=== PATIENT | male | born 1995 | race Caucasian/White ===

== ENCOUNTER 2018-03-12 20:32 | Emergency (ER) | payer SELFPAY ==
--- NOTE | 2018-03-12 20:35 | PDOC ---
Rapid Medical Evaluation Time Seen by Provider: 03/12/18 20:33 Medical Evaluation: 03/12/18 20:33 I have performed a brief in-person evaluation of this patient. The patient presents with a chief complaint of: sacral pain Pertinent physical exam findings: deferred I have ordered the following: Tnothing The patient will proceed to the ED for further evaluation. Discharge Disposition - Diagnosis Sacral pain - Referrals - Patient Instructions - Post Discharge Activity
[2018-03-12 20:40] VITALS: BP 132/62; PULSE 68; TEMP 98.3; BMI 23.8
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
--- NOTE | 2018-03-12 21:16 | PDOC ---
History of Present Illness - General History Source: Patient Exam Limitations: No Limitations - History of Present Illness Initial Comments: 03/12/18 21:00 This is a 22 YOM with 3-year history of intermittent gluteal cleft pain and drainage/bleeding ever since suffering a soft tissue injury to the area. He explains that the pain and drainage have increased in the past 3 weeks and recently this has been giving him difficulty walking and standing. He denies any fever, chills, nausea, vomiting, diarrhea, constipation, pain to the back/ neck, headache, chest pain, new SOB, numbness, tingling, focal weakness, or other symptoms. He was seen at Urgent Care earlier today and given an antibiotic Rx but cannot remember the name. He has not been treated with antibiotics for this in the past. <Kamila Tinajero - Last Filed: 03/13/18 00:14> <Vik Daily - Last Filed: 03/13/18 00:35> - General Chief Complaint: Wound Stated Complaint: PAIN Time Seen by Provider: 03/12/18 20:33 Past History - Past Medical History COPD: No - Suicide/Smoking/Psychosocial Hx Smoking History: Never smoked Have you smoked in the past 12 months: No Information on smoking cessation initiated: No Hx Alcohol Use: No Drug/Substance Use Hx: No Substance Use Type: None <Kamila Tinajero - Last Filed: 03/13/18 00:14> <Vik Daily - Last Filed: 03/13/18 00:35> - Past Medical History Allergies/Adverse Reactions: Allergies Allergy/AdvReac Type Severity Reaction Status Date / Time albuterol Allergy Verified 03/12/18 21:28 azithromycin [From Zithromax] Allergy Verified 03/12/18 21:28 Home Medications: Ambulatory Orders Sulfamethoxazole/Trimethoprim [Bactrim Ds -] 2 tab PO BID #30 tablet 03/13/18 Review of Systems - Review of Systems Able to Perform ROS?: Yes Constitutional: No: Chills, Fever, Unexplained wgt Loss HEENTM: No: Nose Congestion, Throat Pain Respiratory: No: Cough, Shortness of Breath Cardiac (ROS): No: Chest Pain, Palpitations ABD/GI: No: Constipated, Diarrhea, Nausea, Vomiting : No: Burning, Dysuria Musculoskeletal: No: Back Pain, Neck Pain Integumentary: Yes: Lesions (gluteal cleft). No: Bruising, Rash Neurological: No: Headache, Numbness, Tingling, Weakness, Dizziness Endocrine: No: Unexplained Weight Gain, Unexplained Weight Loss <Kamila Tinajero - Last Filed: 03/13/18 00:14> *Physical Exam - Vital Signs Last Vital Signs Temp Pulse Resp BP Pulse Ox 98.3 F 68 18 132/62 100 03/12/18 20:34 03/12/18 20:34 03/12/18 20:34 03/12/18 20:34 03/12/18 20:34 - Physical Exam General Appearance: Yes: Nourished, Appropriately Dressed, Other (nontoxic and well appearing young adult male in no distress at rest, answering questions appropriately, accompanied by sister). No: Apparent Distress HEENT: positive: EOMI, LOLA, Normal Voice, Hearing Grossly Normal. negative: Scleral Icterus (R), Scleral Icterus (L), Nasal Congestion Neck: positive: Trachea midline, Supple. negative: Tender, Rigid Respiratory/Chest: positive: Lungs Clear, Normal Breath Sounds. negative: Respiratory Distress, Crackles, Rhonchi, Stridor, Wheezing Cardiovascular: positive: Regular Rhythm, Regular Rate, S1, S2. negative: Edema , JVD, Murmur Gastrointestinal/Abdominal: positive: Normal Bowel Sounds, Soft. negative: Tender, Organomegaly, Pulsatile Mass, Guarding Rectal Exam: positive: other (superior gluteal cleft with one 4-cm midsagittal open fissure with mildly malodorous drainage, no anal involvement, very tender to manipulation of the wound, no surrounding erythema, induration, or fluctuance ) Musculoskeletal: positive: Normal Inspection. negative: Decreased Range of Motion, Vertebral Tenderness Extremity: positive: Normal Capillary Refill, Normal Inspection, Normal Range of Motion. negative: Tender, Cyanosis Integumentary: positive: Normal Color, Dry, Warm. 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 intact (grossly), Fully Oriented, Alert, Normal Mood/Affect, Normal Response, Motor Strength 5/5 <Kamila Tinajero - Last Filed: 03/13/18 00:14> - Vital Signs Last Vital Signs Temp Pulse Resp BP Pulse Ox 98.3 F 68 18 132/62 100 03/12/18 20:34 03/12/18 20:34 03/12/18 20:34 03/12/18 20:34 03/12/18 20:34 <Vik Daily - Last Filed: 03/13/18 00:35> ED Treatment Course - LABORATORY CBC & Chemistry Diagram: 03/12/18 21:52 03/12/18 21:52 - RADIOLOGY Radiology Studies Ordered: Category Date Time Status PELVIS CT WITH CONTRAST [CT] Stat CT Scan 03/12/18 20:58 Ordered <TinajeroKamila - Last Filed: 03/13/18 00:14> - LABORATORY CBC & Chemistry Diagram: 03/12/18 21:52 03/12/18 21:52 - ADDITIONAL ORDERS Additional order review: Laboratory Results 03/12/18 21:52 Sodium 141 Potassium 4.3 Chloride 105 Carbon Dioxide 29 Anion Gap 7 L BUN 18 Creatinine 1.2 Creat Clearance w eGFR > 60 Random Glucose 93 Calcium 9.0 Total Bilirubin 0.4 AST 13 L ALT 21 Alkaline Phosphatase 117 C-Reactive Protein 3.6 H Total Protein 7.8 Albumin 4.0 03/12/18 21:52 RBC 5.07 MCV 82.4 MCHC 32.9 RDW 13.5 MPV 8.9 Neutrophils % 69.6 Lymphocytes % 19.2 Monocytes % 10.5 H Eosinophils % 0.2 Basophils % 0.5 - Medications Given in the ED: ED Medications Discontinued Medications Generic Name Dose Route Start Last Admin Trade Name Freq PRN Reason Stop Dose Admin Diphtheria/Tetanus/Acell Pertussis 0.5 ml 03/12/18 21:45 03/12/18 21:37 Boostrix - IM 03/12/18 21:46 0.5 ml .ONCE ONE Administration Oxycodone/Acetaminophen 1 combo 03/12/18 21:24 03/12/18 21:38 Percocet 5/325 - PO 03/12/18 21:25 1 combo ONCE ONE Administration Trimethoprim/Sulfamethoxazole 1 each 03/13/18 00:14 03/13/18 00:21 Bactrim Ds - PO 03/13/18 00:15 1 each ONCE ONE Administration <Vik Daily - Last Filed: 03/13/18 00:35> Medical Decision Making - Medical Decision Making Pt p/w chronic non-healing wound to the gluteal cleft with acute worsening of pain and drainage x3 weeks. No known h/o MRSA, no known immune compromise. Last tDaP was unknown. Initial Vital Signs Temp Pulse Resp BP Pulse Ox 98.3 F 68 18 132/62 100 03/12/18 20:34 03/12/18 20:34 03/12/18 20:34 03/12/18 20:34 03/12/18 20:34 Exam: Results as noted in Physical Exam section. DDX IBNLT: gluteal cleft chronic wound (infected vs. non-infected), pilonidal cyst, abscess, cellulitis without abscess, MRSA infection, etc. W/U ordered: Wound culture, CBCD CMP ESR CRP CT pelvis with IV contrast TX ordered: tDaP, percocet, Bactrim Laboratory Tests 03/12/18 03/12/18 21:52 21:52 WBC 9.3 RBC 5.07 Hgb 13.7 Hct 41.8 MCV 82.4 MCH 27.1 MCHC 32.9 RDW 13.5 Plt Count 241 MPV 8.9 Absolute Neuts (auto) 6.5 Neutrophils % 69.6 Lymphocytes % 19.2 Monocytes % 10.5 H Eosinophils % 0.2 Basophils % 0.5 Nucleated RBC % 0 Sodium 141 Potassium 4.3 Chloride 105 Carbon Dioxide 29 Anion Gap 7 L BUN 18 Creatinine 1.2 Creat Clearance w eGFR > 60 Random Glucose 93 Calcium 9.0 Total Bilirubin 0.4 AST 13 L ALT 21 Alkaline Phosphatase 117 C-Reactive Protein 3.6 H Total Protein 7.[address] Pelvis w/ IV contrast: right buttock with increased vascular flow; inflammation vs. infection. No abscess. Reassessment: Patient feels better, wants to go home, repeat exam benign. Repeat VS: DISCHARGE The Pts abscess has been incised and drained without issue. They do not require abx for this laceration. E-Rx is sent to their pharmacy for abx and they will take the whole course as Rx. Workup is not concerning for emergency-level pathology at this time. The Pt is appropriate for discharge with close outpatient follow up. They are comfortable with this plan and will follow up with their PCP in 1-3 days. Specific return precautions are discussed and they will come back to the ER if necessary. <Kamila Tinajero - Last Filed: 03/13/18 00:14> *DC/Admit/Observation/Transfer - Discharge Dispostion Decision to Admit order: No <Kamila Tinajero - Last Filed: 03/13/18 00:14> <Vik Daily - Last Filed: 03/13/18 00:35> Diagnosis at time of Disposition: Gluteal cleft wound Qualifiers: Encounter type: initial encounter Laterality: unspecified laterality Qualified Code(s): S31.809A - Unspecified open wound of unspecified buttock, initial encounter - Discharge Dispostion Disposition: HOME Condition at time of disposition: Stable - Prescriptions Prescriptions: Sulfamethoxazole/Trimethoprim [Bactrim Ds -] 2 tab PO BID #30 tablet - Referrals Referrals: [facility] [place] [facility] [place] [Provider Group] Oniel Trejo MD [Non Staff, Medical] - - Patient Instructions Printed Discharge Instructions: DI for Wound Infection Additional Instructions: You were seen in the ER for a gluteal cleft wound with pain and drainage. We did an exam, imaging studies, and laboratory work as well as a wound culture. After our assessment, we do not believe you are having a medical emergency at this time, and we believe you are safe to go home. Please follow up with regular primary care provider in 1-3 days. We are giving you referral information for our primary care clinic across the street, in case you need a new one. Call their clinic [facility], tell them you were seen in the ER, and tell them you need a follow-up. We are also giving you referral information for our wound care clinic, run by Dr. Trejo. Please give them a call and schedule an appointment with them as well. We are sending an electronic prescription for Bactrim (an antibiotic) to your pharmacy, so please take this antibiotic INSTEAD of the other one you were prescribed. Please take your antibiotic prescription as prescribed and finish the entire course as directed, even if you start feeling better. If you have any new or worsening symptoms, especially increasing pain and redness to the area or other signs of infection like fever, please come back to the ER at any time (24 hours a day). If you are having severe or life threatening symptoms, or symptoms that make it unsafe to drive or have someone drive you, please call 911. - Post Discharge Activity Forms/Work/School Notes: Back to Work
[2018-03-12] MEDS ORDERED: DIPHTH,PERTUSS(ACELL),TET 0.5 ML DISP.SYRIN IM ONE (21:45)
[2018-03-12 22:01] LABS: BASO % 0.5 % (0-2.0); EOS % 0.2 % (0-4.5); HEMATOCRIT 41.8 % (35.4-49); HEMOGLOBIN 13.7 GM/dL (11.7-16.9); LYMPH % 19.2 % (8-40); MCH 27.1 pg (25.7-33.7); MCHC 32.9 g/dl (32.0-35.9); MEAN CELL VOLUME 82.4 fl (80-96); MEAN PLT VOLUME 8.9 fl (7.5-11.1); MONO % 10.5 % (3.8-10.2); NEUT % 69.6 % (42.8-82.8); PLATELET COUNT 241 K/MM3 (134-434); RBC 5.07 M/mm3 (4.00-5.60); RDW 13.5 % (11.9-15.9); WHITE BLOOD COUNT 9.3 K/mm3 (4.0-10.0)
[2018-03-12 22:26] LABS: ANION GAP 7 (8-16); BILIRUBIN,TOTAL 0.4 mg/dL (0.2-1.0); BLOOD UREA NITROGEN 18 mg/dL (7-18); CHLORIDE 105 mmol/L (98-107); CO2 29 mmol/L (21-32); CREATININE 1.2 mg/dL (0.7-1.3); GLUCOSE,RANDOM 93 mg/dL (74-106); POTASSIUM 4.3 mmol/L (3.5-5.1); SGOT/AST 13 U/L (15-37); SGPT/ALT 21 U/L (12-78); SODIUM 141 mmol/L (136-145); TOT PROT 7.8 g/dl (6.4-8.2)
[2018-03-12 22:27] LABS: ALK PHOS 117 U/L (45-117)
[2018-03-12 23:42] LABS: ERYTHROCYTE SEDIMENTATION RATE 55 mm/hr (0-10)
[2018-03-13] MEDS ORDERED: SULFAMETHOXAZOLE/TRIMETHOPRIM 800MG/160MG D.S. TABLET PO ONE (00:14)
[2018-03-13] MEDS ORDERED: SULFAMETHOXAZOLE/TRIMETHOPRIM 800MG/160MG D.S. TABLET ONE (00:20)
== END 2018-03-13 00:36 | disposition home or self-care (01) ==
LOC: JER 20:32
PROC: 0J990ZZ Drainage of Buttock Subcutaneous Tissue and Fascia, Open Approach (ICD-10-PCS; principal; 2018-03-12)
PROC: 3E0234Z Introduction of Serum, Toxoid and Vaccine into Muscle, Percutaneous Approach (ICD-10-PCS; 2018-03-12)
DX: S31.809A Unspecified open wound of unspecified buttock, initial encounter (principal)
CPT/HCPCS: 36415; 72193-TC; 80053; 85025; 85651; 86140; 87070; 87205; 90715; 99281-25